=== PATIENT | female | born 1985 | race Caucasian/White ===

== ENCOUNTER 2017-12-24 14:13 | Emergency (ER) | payer OTHER ==
--- NOTE | 2017-12-24 15:33 | RAD REPORT ---
EXAM DESCRIPTION: CT - Head Brain Wo Cont - 12/24/2017 3:19 pm CLINICAL HISTORY: HEADACHE COMPARISON: <Comparisons> TECHNIQUE: All CT scans are performed using dose optimization technique as appropriate and may inclu de automated exposure control or mA/KV adjustment according to patient size. FINDINGS: No intracranial hemorrhage, hydrocephalus or extra-axial fluid collection.No areas of brai n edema or evidence of midline shift. The paranasal sinuses and mastoids are clear. The calvarium is intact. IMPRESSION: No acute intracranial abnormality.
--- NOTE | 2017-12-24 15:48 | ER ---
Nurse's Notes [facility] Name: Frances Vasquez Age: 32 yrs Sex: Female : 1985 Arrival Date: 12/24/2017 Time: 14:16 Bed 13 Private MD: None, None Diagnosis: Headache Presentation: 12/24 14:20 Presenting complaint: Patient states: "The past few days I've been having headache and hb numbness in my left arm and face. Today the pain is worse and my face is numb again and I'm feeling light-headed" Reports numbness to left arm and left side of face. Terrazzo Polisher are equal bilaterally, equal smile, equal eyebrow lift. Transition of care: patient was not received from another setting of care. Onset of symptoms was December 21, 2017. Risk Assessment: Do you want to hurt yourself or someone else? Patient reports no desire to harm self or others. Initial Sepsis Screen: Does the patient meet any 2 criteria? No. Patient's initial sepsis screen is negative. Does the patient have a suspected source of infection? No. Patient's initial sepsis screen is negative. Care prior to arrival: None. 14:20 Method Of Arrival: Ambulatory hb 14:20 Acuity: TANJA 3 hb Triage Assessment: 14:24 Headache History: Denies prior headaches. General: Appears in no apparent distress. hb uncomfortable, Behavior is calm, cooperative, appropriate for age. Pain: Complains of pain in top of head Pain does not radiate. Pain currently is 6 out of 10 on a pain scale. Quality of pain is described as shooting, Pain began 2-3 days ago. Is continuous, Also complains of nausea. Neuro: Level of Consciousness is awake, alert, obeys commands, Terrazzo Polisher are equal bilaterally Moves all extremities. Full function Speech is normal, Facial symmetry appears normal, Reports dizziness, headache numbness in left cheek, left jaw and left arm. Cardiovascular: Patient's skin is warm and dry. Respiratory: Airway is patent Respiratory effort is even, unlabored, Respiratory pattern is regular, symmetrical. HEALTH ANALYST: 14:24 LMP N/A - Irregular menses hb Historical: - Allergies: 14:24 Sulfa (Sulfonamide Antibiotics); hb - Home Meds: 14:24 None [Active]; hb - PMHx: 14:24 None; hb - PSHx: 14:24 ; hb - Immunization history:: Flu vaccine status is unknown. - Social history:: Smoking status: Patient/guardian denies using tobacco. - Ebola Screening: : Patient negative for fever greater than or equal to 101.5 degrees Fahrenheit, and additional compatible Ebola Virus Disease symptoms. Screenin:30 Abuse screen: Denies threats or abuse. Denies injuries from another. Nutritional kr2 screening: No deficits noted. Tuberculosis screening: No symptoms or risk factors identified. Fall Risk None identified. Assessment: 14:30 General: Appears in no apparent distress. uncomfortable, obese, well groomed, Behavior kr2 is calm, cooperative, appropriate for age. Pain: Complains of pain in face Pain currently is 6 out of 10 on a pain scale. Quality of pain is described as aching, Is continuous, Alleviated by nothing. Neuro: Level of Consciousness is awake, alert, obeys commands, Oriented to person, place, time, situation, Appropriate for age Reports paresthesias in face. Neuro: Terrazzo Polisher are equal bilaterally Speech is normal, Facial symmetry appears normal. Cardiovascular: Capillary refill < 3 seconds in bilateral fingers Patient's skin is warm and dry. Respiratory: Airway is patent Respiratory effort is even, unlabored, Respiratory pattern is regular, symmetrical. GI: Abdomen is flat, non-distended. : Denies burning with urination. : Reports Miscarriage 2 weeks ago. EENT: Oral mucosa is moist. Derm: Skin is intact, is healthy with good turgor, Skin is pink, warm \\T\\ dry. Musculoskeletal: Circulation, motion, and sensation intact. 15:30 Reassessment: Patient appears in no apparent distress at this time. Patient and/or kr2 family updated on plan of care and expected duration. Pain level reassessed. Patient is alert, oriented x 3, equal unlabored respirations, skin warm/dry/pink. Provider aware of patient having miscarriage 2 weeks ago and urine \\E\\dipstick cancelled. 16:08 Reassessment: Patient left prior to receiving her prescription and discharge paperwork. kr2 Vital Signs: 14:24 BP 152 / 84; Pulse 94; Resp 18; Temp 99.5; Pulse Ox 100% on R/A; Weight 108.86 kg (R); hb Height 5 ft. 3 in. (160.02 cm) (R); Pain 6/10; 16:00 BP 126 / 72; Pulse 90; Resp 18; Pulse Ox 100% ; kr2 14:24 Body Mass Index 42.51 (108.86 kg, 160.02 cm) ED Course: 14:16 Patient arrived in ED. sb2 14:17 None, None is Private Physician. sb2 14:23 Triage completed. hb 14:24 Arm band placed on Patient placed in an exam room. hb 14:30 Curly Cha MD is Attending Physician. rn 14:30 Patient has correct armband on for positive identification. Bed in low position. Call kr2 light in reach. Side rails up X 1. Pulse ox on. NIBP on. Door closed. Warm blanket given. Head of bed elevated. 14:35 Juan Veronica NP is PHCP. pm1 14:35 Curly Cha MD is Attending Physician. pm1 15:13 Josee Murray, BETTY is Primary Nurse. kr2 15:19 CT Head Brain wo Cont In Process Unspecified. EDMS 15:19 CT completed. Patient tolerated procedure well. Patient moved back from CT. kw1 15:30 No provider procedures requiring assistance completed. Patient did not have IV access kr2 during this emergency room visit. Administered Medications: No medications were administered Outcome: 15:47 Discharge ordered by . pm1 16:09 Patient left the ED. kr2 20:06 Discharge instructions given to Patient left prior to receiving discharge kr2 papers/instruction and prescriptions Signatures: Dispatcher [employer] EDMS Curly Cha MD MD rn Marinas, Patrick, NP ASPHALT BLENDER pm1 Purnima Pinzon RN RN Josee Murray RN RN kr2 Dodie Hooks kw1 Anisha Gallegos sb2 Corrections: (The following items were deleted from the chart) 20:01 15:30 Reassessment: Patient appears in no apparent distress at this time. Patient kr2 and/or family updated on plan of care and expected duration. Pain level reassessed. Patient is alert, oriented x 3, equal unlabored respirations, skin warm/dry/pink. kr2
--- NOTE | 2017-12-24 15:48 | EDPHYS ---
Physician Documentation [facility] Name: Frances Vasquez Age: 32 yrs Sex: Female : 1985 Arrival Date: 12/24/2017 Time: 14:16 Bed 13 Private MD: None, None ED Physician Curly Cha HPI: 12/24 14:44 This 32 yrs old Female presents to ER via Ambulatory with complaints of pm1 Headache, Numbness. 14:44 The patient complains of pain to the top of head. The patient describes the headache as pm1 intermittent. Onset: The symptoms/episode began/occurred 4 day(s) ago. Associated signs and symptoms: Pertinent positives: numbness to left side of face and left arm, Pertinent negatives: fever, nausea, paresthesias, Photophobia sinus congestion, sinus tenderness, vision changes, vision loss, vomiting. Severity of symptoms: in the emergency department the pain has resolved. Headache History: The patient has had previous headaches and this one is similar to previous episodes. The symptoms are alleviated by Patient does not take her blood pressure medications on a regular basis nor check it. Once she started having the headache she took lisinopril 20 mg PO and it improved her headache. The patient has not recently seen a physician. CLAIM BENEFIT SPECIALIST: 14:24 LMP N/A - Irregular menses hb Historical: - Allergies: 14:24 Sulfa (Sulfonamide Antibiotics); hb - Home Meds: 14:24 None [Active]; hb - PMHx: 14:24 None; hb - PSHx: 14:24 ; hb - Immunization history:: Flu vaccine status is unknown. - Social history:: Smoking status: Patient/guardian denies using tobacco. - Ebola Screening: : Patient negative for fever greater than or equal to 101.5 degrees Fahrenheit, and additional compatible Ebola Virus Disease symptoms. ROS: 14:44 Constitutional: Negative for fever, chills, and weight loss, Eyes: Negative for injury, pm1 pain, redness, and discharge, ENT: Negative for injury, pain, and discharge, Neck: Negative for injury, pain, and swelling, Cardiovascular: Negative for chest pain, palpitations, and edema, Respiratory: Negative for shortness of breath, cough, wheezing, and pleuritic chest pain, Abdomen/GI: Negative for abdominal pain, nausea, vomiting, diarrhea, and constipation, Back: Negative for injury and pain, : Negative for injury, bleeding, discharge, and swelling, MS/Extremity: Negative for injury and deformity. 14:44 Neuro: Positive for headache, numbness, Negative for seizure activity, weakness. Exam: 14:44 Constitutional: This is a well developed, well nourished patient who is awake, alert, pm1 and in no acute distress. Head/Face: Normocephalic, atraumatic. Eyes: Pupils equal round and reactive to light, extra-ocular motions intact. Lids and lashes normal. Conjunctiva and sclera are non-icteric and not injected. Cornea within normal limits. Periorbital areas with no swelling, redness, or edema. ENT: Nares patent. No nasal discharge, no septal abnormalities noted. Tympanic membranes are normal and external auditory canals are clear. Oropharynx with no redness, swelling, or masses, exudates, or evidence of obstruction, uvula midline. Mucous membranes moist. Neck: Trachea midline, no thyromegaly or masses palpated, and no cervical lymphadenopathy. Supple, full range of motion without nuchal rigidity, or vertebral point tenderness. No Meningismus. Chest/axilla: Normal chest wall appearance and motion. Nontender with no deformity. No lesions are appreciated. Cardiovascular: Regular rate and rhythm with a normal S1 and S2. No gallops, murmurs, or rubs. Normal PMI, no JVD. No pulse deficits. Respiratory: Lungs have equal breath sounds bilaterally, clear to auscultation and percussion. No rales, rhonchi or wheezes noted. No increased work of breathing, no retractions or nasal flaring. Abdomen/GI: Soft, non-tender, with normal bowel sounds. No distension or tympany. No guarding or rebound. No evidence of tenderness throughout. Back: No spinal tenderness. No costovertebral tenderness. Full range of motion. Skin: Warm, dry with normal turgor. Normal color with no rashes, no lesions, and no evidence of cellulitis. MS/ Extremity: Pulses equal, no cyanosis. Neurovascular intact. Full, normal range of motion. 14:44 Neuro: Orientation: is normal, Mentation: is normal, Cranial nerves: CN II- XII are normal as tested, Cerebellar function: normal finger to nose testing, Motor: strength is normal, Sensation: is normal, no obvious gross deficits, Gait: is steady, at a normal pace, without difficulty. Vital Signs: 14:24 BP 152 / 84; Pulse 94; Resp 18; Temp 99.5; Pulse Ox 100% on R/A; Weight 108.86 kg (R); hb Height 5 ft. 3 in. (160.02 cm) (R); Pain 6/10; 16:00 BP 126 / 72; Pulse 90; Resp 18; Pulse Ox 100% ; kr2 14:24 Body Mass Index 42.51 (108.86 kg, 160.02 cm) hb MDM: 14:30 Patient medically screened. rn 15:41 Data reviewed: vital signs. Data interpreted: Pulse oximetry: on room air is 100 %. pm1 Interpretation: normal. Counseling: I had a detailed discussion with the patient and/or guardian regarding: the historical points, exam findings, and any diagnostic results supporting the discharge/admit diagnosis, radiology results, the need for outpatient follow up, to return to the emergency department if symptoms worsen or persist or if there are any questions or concerns that arise at home. 15:41 ED course: Patient refused pain medications in the ER and prescriptions for pain. pm1 Patient would like a refill of her blood pressure medications, lisinopril 20 mg PO daily. Patient believes that her headache likely related to blood pressure. Patient has been taking lisinopril PRN for headaches for multiple weeks. 12/24 14:44 Order name: CT Head Brain wo Cont; Complete Time: 15:34 pm1 Administered Medications: No medications were administered Disposition: 17:48 Co-signature as Attending Physician, Curly Cha MD. rn Disposition: 12/24/17 15:47 Discharged to Home. Impression: Headache. - Condition is Stable. - Discharge Instructions: General Headache Without Cause, Hypertension. - Prescriptions for Lisinopril 20 mg Oral Tablet - take 1 tablet by ORAL route once daily; 20 tablet. - Medication Reconciliation Form, Thank You Letter, Antibiotic Education, Prescription Opioid Use form. - Follow up: Emergency Department; When: As needed; Reason: Worsening of condition. Follow up: Private Physician; When: 2 - 3 days; Reason: Recheck today's complaints, Continuance of care, Re-evaluation by your physician. - Problem is new. - Symptoms have improved. Signatures: Dispatcher [employer] EDMS Curly Cha MD MD rn Marinas, Patrick, TRUCK CRANE OPERATOR TRUCK CRANE OPERATOR pm1 Purnima Pinzon RN RN Josee Murray RN RN kr2 Corrections: (The following items were deleted from the chart) 16:09 15:47 12/24/2017 15:47 Discharged to Home. Impression: Headache. Condition is Stable. kr2 Forms are Medication Reconciliation Form, Thank You Letter, Antibiotic Education, Prescription Opioid Use. Follow up: Emergency Department; When: As needed; Reason: Worsening of condition. Follow up: Private Physician; When: 2 - 3 days; Reason: Recheck today's complaints, Continuance of care, Re-evaluation by your physician. Problem is new. Symptoms have improved. pm1
== END 2017-12-24 16:09 | disposition home or self-care (01) ==
LOC: ER 14:13
DX: R51 Headache (principal); Z88.2 Allergy status to sulfonamides
CPT/HCPCS: 70450; 99284